=== PATIENT | male | born 1980 | race Caucasian/White ===

== ENCOUNTER → 2025-02-10 | Outpatient (CLI) | payer OTHER ==
--- NOTE | 2025-02-10 21:50 | XR ---
EXAMINATION TYPE: XR spine complete AP and Lat DATE OF EXAM: 02/10/2025 5:41 PM COMPARISON: None. CLINICAL INDICATION: Male, 44 years old with history of M54.9 DORSALGIA, UNSPECIFIED G89.29 OTHER CHR ONIC, pain TECHNIQUE: 2 view(s) obtained. FINDINGS: Cervical spine: Prevertebral space is normal. Anterior vertebral body spurring is present C5-6. Poste rior spinal lamellar line is intact. Mild degenerative disc changes are present C5-6 C6-7. The odonto id is limited with overlying occiput. Thoracic spine: There are 12 thoracic type she will bodies. Pedicles are intact. Subtle scoliosis is present. Vertebral body heights are preserved. Disc heights are preserved. Lumbar spine: There are 5 lumbar-type vertebral bodies. Pedicles are intact. There is disc space narr owing L4-5 and L5-S1. Vertebral body heights are preserved. Vertebral body alignment is preserved. IMPRESSION: 1. No suspicious acute osseous changes within the cervical thoracic or lumbar spine. 2. Scoliosis present. 3. Scattered areas of degenerative disc change within the mid cervical spine and lower lumbar spine [facility], , 02/10/2025 9:48 PM
== END | disposition home or self-care (01) ==
LOC: RADXRMAIN 15:57
PROVIDERS: ATTEND Family Medicine
DX: M50.323 Other cervical disc degeneration at C6-C7 level (principal); M51.369 Other intervertebral disc degeneration, lumbar region without mention of lumbar back pain or lower extremity pain; M41.84 Other forms of scoliosis, thoracic region
CPT/HCPCS: 72082

== ENCOUNTER → 2025-03-12 | Outpatient (CLI) | payer OTHER ==
--- NOTE | 2025-03-12 09:50 | US ---
EXAMINATION TYPE: US abdomen complete DATE OF EXAM: 03/12/2025 COMPARISON: CT 2013 CLINICAL INDICATION: Male, 44 years old with history of R63.4 WT LOSS R10.84 GEN ABD JEROME; lost 10 lbs in one week TECHNIQUE: Grayscale and color Doppler imaging of the abdomen was performed. FINDINGS: EXAM MEASUREMENTS: Liver Length: 13.2 cm Gallbladder Wall: 0.2 cm CBD: 0.2 cm, color Doppler imaging was utilized to isolate the common bile duct for measurement. Spleen: 8.7 cm Right Kidney: 9.7 x 3.6 x 5.3 cm Left Kidney: 9.2 x 5.1 x 5.4 cm RANGE MASTER NOTES: Pancreas: Tail obscured by overlying bowel gas Liver: wnl, no dilated ducts, masses or cysts. Gallbladder: wnl Evidence for sonographic Conner's sign: No CBD: wnl Spleen: wnl Right Kidney: wnl, No hydronephrosis, calculi or masses seen Left Kidney: wnl, No hydronephrosis, calculi or masses seen Upper IVC: wnl Abd Aorta: wnl The liver is homogenous. The intrahepatic portion of the IVC and proximal abdominal aorta are within normal limits. There is no evidence of cholelithiasis. Common bile duct is unremarkable. The visu alized portions of the pancreas are homogenous. The spleen is unremarkable. Kidneys are symmetric a nd free of hydronephrosis. No renal lesions are seen. IMPRESSION: No evidence for acute process. [facility], , 03/12/2025 9:48 AM
== END | disposition home or self-care (01) ==
LOC: RADUSWWP 08:57
PROVIDERS: ATTEND Family Medicine
DX: R63.4 Abnormal weight loss (principal); R10.84 Generalized abdominal pain
CPT/HCPCS: 76700

== ENCOUNTER → 2025-03-26 | Outpatient (CLI) | payer OTHER ==
[2025-03-26 08:18] VITALS: BP 115/79; PULSE 81; RESP 16; TEMP 97.7
--- NOTE | 2025-03-26 14:29 | P.PAINPG ---
Objective - Vital Signs Vital signs: Intake & Output 03/25/25 03/26/25 03/26/25 18:59 06:59 18:59 Weight 56.699 kg PQRS Measure Charge Sheet Comment: HISTORY OF PRESENT ILLNESS: A 44 yr old male as a referral from [facility] presents today w severe and chronic neck and LBP > 1 yr secondary to radiculopathy, spondylosis and facet arthropathy without myelopathy for evaluation. Pt states pain level is provoked at 10 /10 in intensity, constant, localized in the cervical & lumbar spine, predominantly axial, achy in character w occasional shooting pain towards the hips, buttocks and LEs and tingling in the UEs. Pain is provoked by any movement. Pain is alleviated by medications, repositioning and rest . Only wants narcotic medications. Oswestry axial pain score at 17. PMH: OA, GERD, Schizophrenia/ ADHD, MDD (PQH=23, severe depression ) PSH: Appendectomy (2020), Scrotal Hernia ([id number]), Ulcers (2022), RUE Fracture (2007) SH: Former tobacco user, No ETOH use, No illicit drug use FH: Fa- Alcoholism All: See list Medications include Lyrica REVIEW OF ORGAN SYSTEMS: CONSTITUTIONAL: No fevers or chills. No recent weight loss. NEUROLOGICAL: + numbness and tingling along the distal extremities. No seizure disorders or headaches. MUSCULOSKELETAL: + pain PSYCHIATRIC: Denies current depression or suicidal thoughts. Physical Examinations : Constitutional : Cooperative , not in acute distress . Neurologic : Cranial nerve II to XII intact. No focal neurological deficits. Psychiatric : alert & oriented x 3. Matching mood & appropriate affect. Judgment & insight intact. Musculoskeletal : Cervical Spine Motor strength in the deltoid and biceps: Normal right side. Normal Left side Motor strength biceps and the wrist extensors: Normal right side . Normal left side Motor strength in the triceps muscle: Normal right side. Normal left side Deep tendon reflexes: Normal at the biceps. Normal at Brachioradialis. Normal at triceps Lhermitte Sign (cervical flexion) positive Vertebral body tenderness to deep palpation over C6 Cervical facet loading test: positive bilaterally Spurling test: positive bilaterally Neck distraction test: positive bilaterally Maude sign: positive bilaterally Shoulders Muscle bulk/ tone/ strength BL Resisted Internal Rotation positive R / positive L Resisted External Rotation positive R / positive L Empty Can Test positive R / positive L Drop Arm Test positive R / positive L Lumbar spine Motor strength lower extremities ,thigh and legs 5/5 Right side , 5/5 Left side Deep tendon reflexes : Normal Knee Jerk. Normal Ankle Jerk Vertebral body tenderness over Potter Test positive Lumbar facet Loading Test: positive Right / positive Left Range of motion of the lumbar spine Flexion 30 degrees, extension 10 degrees Straight Leg Raise test: Left/ Right positive at degrees Drop foot reflex: positive R / positive L Slick test: positive right / positive left. Severe tenderness over the Sacroiliac joint on the Right / Left sides Gaenslen test: positive bilaterally Sacral spine : Severe tenderness over the Sacroiliac joint: right side / left side Range of motion: Flexion of the lumbar spine <60 degrees Range of motion: Extension of the lumbar spine <20 degrees Gaenslen's Test positive Slick test: positive right side / left side Thigh Thrust Test Sacral Thrust Test Hip Joint Antalgic walking gait positive Trendelenburg positive R / positive L Imaging: X ray lumbar spine from 02/10/25 reviewed Assessment/ Plan : L4-S1 radiculopathy Recommendation of PT w focus on traction M54.12, M54.16. Uncooperative w treatment plan of imaging and intervention stating "I've had shots none of them work." Discharge paperwork completed for non-compliance. All questions answered. I have spent greater than 30 minutes on patient care today. Dr Poole was available by phone for the evaluation of this patient. The time was used to review the medical records including relevant urine studies and Prescription history (MAPs), review of the available imaging, evaluation and examination of the patient, coordination of care with the medical staff and if applicable referring physicians, as well as creation of the medical record - Pain Location Bilateral Lower Back Non-Pharmacological Interventions: Position/Reposition, Relaxation Technique, Sitting Pharmacological Interventions: PRN Medication, Scheduled Medication Home Medications: Ambulatory Orders Mirtazapine 7.5 mg PO DAILY 03/26/25 Pantoprazole [Protonix] 40 mg PO DAILY 03/26/25 Pregabalin [Lyrica] 300 mg PO BID 03/26/25 Controlled Substance Measures - Controlled Substance Measures Is patient prescribed a controlled substance at discharge?: No
== END ==
LOC: PNWHC3 07:49
PROVIDERS: ATTEND Specialist
DX: M47.27 Other spondylosis with radiculopathy, lumbosacral region (principal); M47.22 Other spondylosis with radiculopathy, cervical region
CPT/HCPCS: 99211